=== PATIENT | male | born 1965 ===

== ENCOUNTER 2021-01-18 07:47 | Day surgery (SDC) | payer OTHER ==
[~2021-01-18 07:47] MED LIST: ECOTRIN81 MG PO; LOTREL 5-10 MG1 CAP PO; MOBIC7.5 MG PO; RESTORIL30 M1 PO; SEROQUEL XR1 EACH PO; WELLBUTRIN XL300 MG PO; XANAX XR1 MG PO; ZOCOR40 MG PO
[2021-01-18] MEDS ORDERED: PERCOCET 5-3251 EACH PO (09:00)
== END 2021-01-18 13:00 | disposition home or self-care (01) ==
LOC: CIR.AMB 07:47
PROVIDERS: ATTEND Surgery
DX: K62.6 Ulcer of anus and rectum (principal)